=== PATIENT | female | born 1990 | race Caucasian/White ===

== ENCOUNTER 2018-04-10 22:59 | Outpatient (CLI) | payer BC ==
[2018-04-11 01:43] LABS: RUPTURE FETAL MEMBRANES NEGATIVE (NEGATIVE)
== END 2018-04-11 04:40 | disposition home or self-care (01) ==
LOC: OBT 22:59 → L-D 23:00
DX: O42.913 Preterm premature rupture of membranes, unspecified as to length of time between rupture and onset of labor, third trimester (principal); Z3A.37 37 weeks gestation of pregnancy
CPT/HCPCS: 76818; 84112

== ENCOUNTER 2018-04-25 10:29 | Inpatient (IN) | payer BC ==
[~2018-04-25 10:29] MED LIST: OXYTOCIN 30 UNITS/LR 500 ML BAG IV
[2018-04-25] MEDS ORDERED: MISOPROSTOL 200 MCG TAB PR ×2 (11:00→18:30)
[2018-04-25] MEDS ORDERED: METHYLERGONOVINE 0.2 MG INJ IM ×2 (11:00→18:30)
[2018-04-25] MEDS ORDERED: CARBOPROST 250 MCG INJ IM ×2 (11:00→18:30)
[2018-04-25] MEDS ORDERED: OXYTOCIN 30 UNITS/LR 500 ML IV ×2 (11:00→18:30)
[2018-04-25 11:27] LABS: ADD MAN DIFF? NO
[2018-04-25 11:32] LABS: BASOPHILS % 0.2 % (0.0-2.0); EOSINOPHILS # 0.1 10^3/ul (0.0-0.5); EOSINOPHILS % 0.5 % (0.0-7.0); HEMATOCRIT 33.9 % (37.0-47.0); HEMOGLOBIN 10.9 g/dl (12.0-16.0); LYMPHOCYTES # 1.8 10^3/ul (0.8-2.9); LYMPHOCYTES % 13.9 % (15.0-51.0); MEAN CORPUSCULAR HEMOGLOBIN 27.4 pg (29.0-33.0); MEAN CORPUSCULAR HGB CONC 32.2 g/dl (32.0-37.0); MEAN CORPUSCULAR VOLUME 85.2 fl (82.0-101.0); MEAN PLATELET VOLUME 9.9 fl (7.4-10.4); MONOCYTE # 0.8 10^3/ul (0.3-0.9); MONOCYTES % 5.8 % (0.0-11.0); NEUTROPHIL # 10.1 10^3/ul (1.6-7.5); PLATELET COUNT 243 10^3/UL (140-415); RED BLOOD COUNT 3.98 10^6/ul (4.20-5.40); RED CELL DISTRIBUTION WIDTH 13.8 % (11.5-14.5)
[2018-04-25 11:32] LABS: WHITE BLOOD COUNT 12.9 10^3/ul (4.8-10.8)
[2018-04-25] MEDS: LACTATED RINGER'S 1,000 ML IV ×3 (11:48→18:08)
[2018-04-25 12:30] LABS: HEPATITIS B SURFACE ANTIGEN NEGATIVE (NEGATIVE)
[2018-04-25 12:49] LABS: INR 0.96; PROTIME 12.9 Sec (11.9-14.9)
[2018-04-25 12:50] LABS: PARTIAL THROMBOPLASTIN TIME 28.5 Sec (25.0-35.0)
[2018-04-25] MEDS ORDERED: morphine SULFATE/PF (10 MG/10 ML) INJ (13:33)
[2018-04-25] MEDS ORDERED: PHENYLephrine (100 MCG/ML) 5ML SYG (13:33)
[2018-04-25] MEDS ORDERED: OXYTOCIN 10 UNIT INJ (13:33)
[2018-04-25] MEDS ORDERED: ONDANSETRON 4 MG INJ (13:33)
[2018-04-25] MEDS ORDERED: BUPIVACAINE 0.75%/DEXT (SPINAL) 2 ML INJ (13:34)
[2018-04-25] MEDS ORDERED: PHENYLephrine 10 MG INJ (13:34)
[2018-04-25] MEDS ORDERED: FENTAnyl 50 MCG/ML VIAL (14:26)
[2018-04-25] MEDS: CLINDAMYCIN 900 MG/D5W (PMX) 50 ML IV (15:54)
[2018-04-25] MEDS: OXYTOCIN 30 UNITS/LR 500 ML IV ×2 (15:55→19:20)
[2018-04-25] MEDS ORDERED: NALOXONE (0.4 MG/ML) INJ IV (16:00)
[2018-04-25] MEDS ORDERED: ONDANSETRON 4 MG INJ IV (16:00)
[2018-04-25] MEDS ORDERED: DIPHENHYDRAMINE 50 MG INJ IV (16:00)
[2018-04-25] MEDS: METOCLOPRAMIDE 10 MG INJ IV (16:08)
[2018-04-25] MEDS: KETOROLAC 30 MG INJ IV ×2 (16:14→22:19)
[2018-04-25] MEDS ORDERED: OXYCODONE/ACETAMINOPHEN (5/325) TAB PO (18:30)
[2018-04-25] MEDS ORDERED: LANOLIN 7 GM TUBE TOP (18:30)
[2018-04-25 19:40] LABS: RAPID PLASMA REAGIN NONREACTIVE (NR)
[2018-04-25] MEDS: IBUPROFEN 800 MG TAB PO (22:00)
[2018-04-26] MEDS: KETOROLAC 30 MG INJ IV ×2 (04:26→11:05)
[2018-04-26] MEDS: LACTATED RINGER'S 1,000 ML IV ×3 (05:26→18:08)
[2018-04-26] MEDS: IBUPROFEN 800 MG TAB PO ×3 (06:00→21:26)
[2018-04-26 09:49] LABS: ADD MAN DIFF? NO
[2018-04-26 09:56] LABS: WHITE BLOOD COUNT 11.6 10^3/ul (4.8-10.8)
[2018-04-26 09:56] LABS: BASOPHILS % 0.1 % (0.0-2.0); EOSINOPHILS % 0.1 % (0.0-7.0); HEMATOCRIT 32.3 % (37.0-47.0); HEMOGLOBIN 10.3 g/dl (12.0-16.0); LYMPHOCYTES # 1.5 10^3/ul (0.8-2.9); LYMPHOCYTES % 12.9 % (15.0-51.0); MEAN CORPUSCULAR HEMOGLOBIN 27.3 pg (29.0-33.0); MEAN CORPUSCULAR HGB CONC 31.9 g/dl (32.0-37.0); MEAN CORPUSCULAR VOLUME 85.7 fl (82.0-101.0); MEAN PLATELET VOLUME 9.8 fl (7.4-10.4); MONOCYTE # 0.7 10^3/ul (0.3-0.9); NEUTROPHIL # 9.3 10^3/ul (1.6-7.5); PLATELET COUNT 215 10^3/UL (140-415); RED BLOOD COUNT 3.77 10^6/ul (4.20-5.40); RED CELL DISTRIBUTION WIDTH 14.1 % (11.5-14.5)
[2018-04-26] MEDS: OXYCODONE/ACETAMINOPHEN (5/325) TAB PO ×3 (16:10→21:25)
[2018-04-27] MEDS: LACTATED RINGER'S 1,000 ML IV ×2 (02:08→18:08)
[2018-04-27] MEDS: IBUPROFEN 800 MG TAB PO ×3 (05:57→21:28)
[2018-04-27] MEDS: OXYCODONE/ACETAMINOPHEN (5/325) TAB PO (08:46)
[2018-04-28] MEDS: LACTATED RINGER'S 1,000 ML IV ×2 (02:08→10:03)
[2018-04-28] MEDS: IBUPROFEN 800 MG TAB PO ×2 (05:46→13:57)
[2018-04-28] MEDS: DIPHTH/TET/ACEL PERTUSS (ADULT) 0.5 ML VIAL IM* (09:00)
[2018-04-28] MEDS: OXYCODONE/ACETAMINOPHEN (5/325) TAB PO (10:48)
== END 2018-04-28 14:22 | disposition home or self-care (01) | DRG 766 ==
LOC: L-D 10:29 → PP1 17:07
PROVIDERS: Obstetrics & Gynecology
PROC: 10D00Z1 Extraction of Products of Conception, Low, Open Approach (ICD-10-PCS; principal; 2018-04-25 12:30)
DX: O69.81X0 Labor and delivery complicated by cord around neck, without compression, not applicable or unspecified (principal); Z3A.39 39 weeks gestation of pregnancy; Z37.0 Single live birth
CPT/HCPCS: 85025; 85610; 85730; 86592; 86850; 86900; 86901; 87340; 99464